=== PATIENT | male | born 1990 | race Caucasian/White ===

== ENCOUNTER 2019-10-28 05:51 | Emergency (ER) | payer SELFPAY ==
[~2019-10-28] VITALS: Ht 188 cm; Wt 127.0 kg
--- NOTE | 2019-10-28 06:25 | PHYS DOC ---
Past Medical History Past Medical History: No Pertinent History Past Surgical History: No Surgical History Smoking Status: Current Every Day Smoker Alcohol Use: None Drug Use: None Adult General Chief Complaint Chief Complaint: KNEE SWELLING [facility] HPI Patient is a 29 year old male who presents with left-sided knee pain 2 days it is gradually worsening with no known injury. Patient has swelling proximal to the left knee. 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 He went to [facility] emergency department recently and states he had lab work performed but no x-ray. He was referred to an orthopedic physician supposedly. Patient states he has been taking ibuprofen for pain but it continues to get worse and is currently rated moderate to severe and worse with movement. There is no numbness or tingling distally. No fever or chills or increased warmth in the knee. Review of Systems Review of Systems All other ROS is negative unless otherwise stated in HPI Current Medications Current Medications Current Medications Medications (Trade) Dose Ordered Sig/Afshan Start Time Stop Time Status Last Admin Dose Admin Morphine Sulfate (Morphine Sulfate) 4 mg 1X ONCE 10/28/19 06:30 10/28/19 06:31 DC 10/28/19 07:04 4 MG Allergies Allergies Allergies Coded Allergies Type Severity Reaction Last Updated Verified No Known Drug Allergies 08/06/15 No Physical Exam Physical Exam See above Constitutional: Well developed, well nourished, no acute distress, non-toxic appearance. [] HENT: Normocephalic, atraumatic, bilateral external ears normal, oropharynx moist, no oral exudates, nose normal. [] Eyes: PERRLA, EOMI, conjunctiva normal, no discharge. [] Neck: Normal range of motion, no tenderness, supple, no stridor. [] Cardiovascular:Heart rate regular rhythm, no murmur [] Lungs & Thorax: Bilateral breath sounds clear to auscultation [] Abdomen: Bowel sounds normal, soft, no tenderness, no masses, no pulsatile masses. [] Skin: Warm, dry, no erythema, no rash. [] Back: No tenderness, no CVA tenderness. [] Extremities: Normal except for the left knee which has a moderate amount of swelling just proximal to the knee and that this is firm and mildly warm to touch. Patient has pain with range of motion. Neurologic: Alert and oriented X 3, normal motor function, normal sensory function, no focal deficits noted. [] Psychologic: Affect normal, judgement normal, mood normal. [] Current Patient Data Vital Signs Vital Signs Date Time Temp Pulse Resp B/P (MAP) Pulse Ox O2 Delivery O2 Flow Rate FiO2 10/28/19 07:04 16 97 Room Air 10/28/19 06:07 98.0 101 139/94 (109) 98.0 Lab Values Laboratory Tests Test 10/28/19 06:50 White Blood Count 8.3 x10^3/uL (4.0-11.0) Red Blood Count 5.42 x10^6/uL (4.30-5.70) Hemoglobin 15.8 g/dL (13.0-17.5) Hematocrit 44.6 % (39.0-53.0) Mean Corpuscular Volume 82 fL (79-100) Mean Corpuscular Hemoglobin 29 pg (25-35) Mean Corpuscular Hemoglobin Concent 35 g/dL (31-37) Red Cell Distribution Width 12.1 % (11.5-14.5) Platelet Count 195 x10^3/uL (140-400) Neutrophils (%) (Auto) 78 % (31-73) H Lymphocytes (%) (Auto) 12 % (24-48) L Monocytes (%) (Auto) 9 % (0-9) Eosinophils (%) (Auto) 1 % (0-3) Basophils (%) (Auto) 1 % (0-3) Neutrophils # (Auto) 6.5 x10^3/uL (1.8-7.7) Lymphocytes # (Auto) 1.0 x10^3/uL (1.0-4.8) Monocytes # (Auto) 0.7 x10^3/uL (0.0-1.1) Eosinophils # (Auto) 0.1 x10^3/uL (0.0-0.7) Basophils # (Auto) 0.0 x10^3/uL (0.0-0.2) Sodium Level 141 mmol/L (136-145) Potassium Level 4.0 mmol/L (3.5-5.1) Chloride Level 104 mmol/L (98-107) Carbon Dioxide Level 26 mmol/L (21-32) Anion Gap 11 (6-14) Blood Urea Nitrogen 14 mg/dL (8-26) Creatinine 0.9 mg/dL (0.7-1.3) Estimated GFR (Cockcroft-Gault) 99.8 Glucose Level 134 mg/dL (70-99) H Uric Acid 5.3 mg/dL (3.5-7.2) Calcium Level 8.9 mg/dL (8.5-10.1) C-Reactive Protein, Quantitative 23.6 mg/L (0-3.3) H Laboratory Tests 10/28/19 06:50 Laboratory Tests 10/28/19 06:50 EKG EKG [] Radiology/Procedures Radiology/Procedures KNEE 3 VIEWS LEFT Clinical Indication: Pain. Comparison: None. Findings: There is no acute fracture or dislocation. The tricompartmental joint spaces are maintained. The patella is in anatomic position. The mineralization is normal. Cannot exclude small joint effusion. Question suprapatellar soft tissue swelling. IMPRESSION: No acute fracture. Electronically signed by: Manohar Mccullough MD (10/28/2019 6:40 AM) [id number] Course & Med Decision Making Course & Med Decision Making Pertinent Labs and Imaging studies reviewed. (See chart for details) Start with labs and x-ray and give the patient morphine for pain. Differential diagnosis includes nontoxic effusion, gallops, unknown injury, septic arthritis. Workup is complete at this time an x-ray is negative except for small effusion. Patient's labs reveal no evidence of infection or gout. He does have evidence of inflammation. We'll place an Irving wrap on him and prescribe anti-inflammatories and pain medication and the patient will be instructed to follow-up with orthopedics for further evaluation and care. Dragon Disclaimer Dragon Disclaimer This electronic medical record was generated, in whole or in part, using a voice recognition dictation system. Departure Departure Impression: Primary Impression: Left knee pain Additional Impression: Effusion, left knee Disposition: HOME, SELF-CARE Condition: STABLE Referrals: NO PCP (PCP) BIB MATUTE MD Call for follow up appointment today. Patient Instructions: Knee Effusion Additional Instructions: Take all medication as prescribed and call your doctor for follow-up Scripts Ibuprofen (IBUPROFEN) 800 Mg Tablet 800 MG PO PRN Q8HRS PRN for INFLAMMATION, #20 TAB Prov: JAIME MORROW DO 10/28/19 Hydrocodone/Apap 5-325 (NORCO 5-325 TABLET) 1 Each Tablet 1 TAB PO PRN Q6HRS PRN for PAIN, #20 TAB 0 Refills Prov: JAIME MORROW DO 10/28/19 Problem Qualifiers JAIME MORROW DO Oct 28, 2019 06:25
[2019-10-28] MEDS ORDERED: MORPHINE SULFATE 4 MG/ML VIAL. IM ONE (06:30)
--- NOTE | 2019-10-28 06:43 | RAD ---
KNEE 3 VIEWS LEFT Clinical Indication: Pain. Comparison: None. Findings: There is no acute fracture or dislocation. The tricompartmental joint spaces are maintained. The patella is in anatomic position. The mineralization is normal. Cannot exclude small joint effusion. Question suprapatellar soft tissue swelling. IMPRESSION: No acute fracture. Electronically signed by: Manohar Mccullough MD (10/28/2019 6:40 AM) [id number]
[2019-10-28 06:59] LABS: BASO % 1 % (0-3); EOS # 0.1 x10^3/uL (0.0-0.7); EOS % 1 % (0-3); HEMATOCRIT 44.6 % (39.0-53.0); HEMOGLOBIN 15.8 g/dL (13.0-17.5); LYMPH % 12 % (24-48); MEAN CORPUSCULAR HEMOGLOBIN 29 pg (25-35); MEAN CORPUSCULAR HGB CONC 35 g/dL (31-37); MEAN CORPUSCULAR VOLUME 82 fL (79-100); MONO # 0.7 x10^3/uL (0.0-1.1); MONO % 9 % (0-9); NEUT # 6.5 x10^3/uL (1.8-7.7); NEUT % 78 % (31-73); PLATELET COUNT 195 x10^3/uL (140-400); RED BLOOD COUNT 5.42 x10^6/uL (4.30-5.70); RED CELL DISTRIBUTION WIDTH 12.1 % (11.5-14.5); WHITE BLOOD COUNT 8.3 x10^3/uL (4.0-11.0)
[2019-10-28 07:12] LABS: CALCIUM 8.9 mg/dL (8.5-10.1); CREATININE 0.9 mg/dL (0.7-1.3); GFR 99.8
[2019-10-28 07:15] LABS: C-REACTIVE PROTEIN 23.6 mg/L (0-3.3); URIC ACID 5.3 mg/dL (3.5-7.2)
[2019-10-28] MEDS ORDERED: HYDR-3164 PO (07:35)
[2019-10-28] MEDS ORDERED: IBUP-1060 PO (07:35)
[2019-10-28 07:39] VITALS: BP 156/91
== END 2019-10-28 07:39 | disposition home or self-care (01) ==
LOC: ER 05:51
DX: M25.462 Effusion, left knee (principal); R60.0 Localized edema; F17.200 Nicotine dependence, unspecified, uncomplicated
CPT/HCPCS: 36415; 73562; 80048; 84550; 85025; 85651; 86140; 96372; 99284; J2270